=== PATIENT | male | born 1975 | race Caucasian/White ===

== ENCOUNTER 2018-11-08 21:37 | Emergency (ER) | payer MEDICAID ==
[~2018-11-08] VITALS: Ht 160 cm; Wt 77.1 kg
[2018-11-08 21:50] VITALS: BP 120/76
--- NOTE | 2018-11-08 21:50 | NUR ---
TO BED # 3 AMBULATORY
--- NOTE | 2018-11-08 22:39 | NUR ---
DR. DASILVA EVALUATING AT BEDSIDE.
[2018-11-08 22:56] VITALS: BP 120/76
--- NOTE | 2018-11-08 22:56 | NUR ---
Patient discharged with v/s stable. Written and verbal after care instructions given and explained. Patient alert, oriented and verbalized understanding of instructions. Ambulatory with steady gait. All questions addressed prior to discharge. ID band removed. Patient advised to follow up with PMD. Rx of ACETIC ACID-OTIC, MOTRIN, TRAMADOL WAS given. Patient educated on indication of medication including possible reaction and side effects. Opportunity to ask questions provided and answered.
== END 2018-11-08 22:56 | disposition home or self-care (01) ==
LOC: MED 21:37
DX: H60.93 Unspecified otitis externa, bilateral (principal)
CPT/HCPCS: 99283

== ENCOUNTER 2022-12-31 19:04 | Emergency (ER) | payer SELFPAY ==
[~2022-12-31] VITALS: Ht 175.3 cm; Wt 81.6 kg
[2022-12-31 19:18] VITALS: BP 134/77; PULSE 67; RESP 16; TEMP 97.1; O2SAT 97
[2022-12-31] MEDS ORDERED: KETOROLAC 30 MG/ML VIAL IM ONE (19:55)
[2022-12-31] MEDS ORDERED: guaiFENesin 20 MG/ML UDC PO ONE (19:55)
[2022-12-31 20:20] LABS: BASOPHILS % (AUTO) 0.7 % (0.0-2.0); EOSINOPHILS # (AUTO) 0.2 K/uL (0-0.4); EOSINOPHILS % (AUTO) 2.8 % (0.0-4.0); HEMOGLOBIN 14.1 g/dL (12.0-18.0); LYMPHOCYTES # (AUTO) 2.5 K/uL (2.0-11.5); MEAN CORPUSCULAR HEMOGLOBIN 32 pg (27-31); MEAN CORPUSCULAR HGB CONC 34 g/dL (33-37); MONOCYTES # (AUTO) 0.7 K/uL (0.8-1.0); MONOCYTES % (AUTO) 9.3 % (1.7-9.3); NEUTROPHILS # (AUTO) 3.9 K/uL (1.8-7.7); NEUTROPHILS % (AUTO) 53.2 % (42.2-75.2); PLATELET COUNT (AUTO) 178 K/uL (140-450); RED BLOOD CELL COUNT(AUTO) 4.42 MIL/uL (4.20-6.10); RED CELL DISTRIBUTION WIDTH 13.4 % (11.6-13.7); WHITE BLOOD COUNT (AUTO) 7.4 K/uL (4.8-10.8)
[2022-12-31] MEDS ORDERED: AZITHROMYCIN 250 MG TAB PO ONE (20:40)
[2022-12-31 20:41] LABS: ALBUMIN 3.2 g/dL (3.4-5.0); ANION GAP 10.3 (8-16); CALCIUM 8.3 mg/dL (8.5-10.1); CARBON DIOXIDE 27.1 mmol/L (21-32); CREATININE 0.9 mg/dL (0.6-1.3); POTASSIUM 3.4 mmol/L (3.5-5.1); TOTAL BILIRUBIN 0.7 mg/dL (0.0-1.0); TOTAL PROTEIN, SERUM 8.2 g/dL (6.4-8.2)
[2022-12-31] MEDS ORDERED: cefTRIAXone 1,000 MG VIAL ONE (21:04)
[2022-12-31 21:23] LABS: LACTIC ACID 1.1 mmol/L (0.4-2.0)
[2022-12-31] MEDS ORDERED: SUD30 PO (21:36)
[2022-12-31] MEDS ORDERED: AMOX500C25 PO (21:36)
[2022-12-31] MEDS ORDERED: AZIT250T4 PO (21:36)
[2022-12-31] MEDS ORDERED: DEXT118S25 PO (21:36)
[2022-12-31] MEDS ORDERED: BENZ200C4 PO (21:36)
[2022-12-31] MEDS ORDERED: ALBU0.0912 IH (21:36)
[2022-12-31 21:48] VITALS: BP 126/69; PULSE 67; RESP 16; TEMP 97.1; O2SAT 96
== END 2022-12-31 21:48 | disposition home or self-care (01) ==
LOC: MED 19:04
DX: J18.9 Pneumonia, unspecified organism (principal); H61.23 Impacted cerumen, bilateral; E87.6 Hypokalemia; E83.51 Hypocalcemia; Z79.899 Other long term (current) drug therapy
CPT/HCPCS: 36415; 71045; 80053; 83605; 83880; 84484; 85025; 87040; 93005; 96365; 96372; 99285; J0696; J1885